=== PATIENT | female | born 1940 | race Hispanic/Latino ===

== ENCOUNTER → 2018-06-02 | Outpatient (CLI) | payer MEDICARE ==
--- NOTE | 2018-06-02 09:36 | Diagnostic Imaging Report ---
Exam: Bilateral knees 3 views History: Bilateral knee pain Comparison: None. Findings: Left: No acute, displaced fracture or dislocation. Advanced medial compartment predominant tricompartmental joint space narrowing with subchondral sclerosis and marginal osteophytosis. Small nonspecific suprapatellar joint effusion. Small, stippled calcifications project over the anterolateral soft tissues of the leg at the level of the proximal tibia, as well as adjacent to the posterior aspect of the distal femur on the lateral radiograph. Right: No acute, displaced fracture or dislocation. Advanced medial compartment predominant tricompartmental joint space narrowing, subchondral sclerosis and marginal osteophytosis. Small nonspecific suprapatellar joint effusion. Intra-articular osteochondral fragment projects over the lateral compartment on the frontal radiographs. 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 Suspected intra-articular osteochondral fragment in the right knee joint, and nonspecific soft tissue calcifications about the left knee joint.. These findings may be further evaluated by MRI if clinically warranted. Signed by: Dr. Willem Boss M.D. on 06/02/2018 9:32 AM
== END ==
LOC: RAD 08:34
PROVIDERS: ATTEND Emergency Medicine
DX: M25.562 Pain in left knee (principal); M25.561 Pain in right knee

== ENCOUNTER → 2019-02-03 | Outpatient (CLI) | payer OTHER ==
--- NOTE | 2019-02-03 14:44 | Diagnostic Imaging Report ---
EXAMINATION: MRI of the brain without contrast. HISTORY: Memory loss COMPARISON: None. TECHNIQUE: Sagittal T1 ultrathin slice with coronal and axial reformations; axial DWI, T2, FLAIR, T2 gradient echo. IMAGE QUALITY: Artifact from patient motion mildly limits evaluation of the sequences. FINDINGS: DEMENTIA: Structural lesion: No intra- or extra-axial mass or hematoma. Ventricles: No hydrocephalus. Trivedi matter signal intensity: Cortex: Unremarkable. Basal ganglia: Unremarkable. Thalami: Unremarkable. White matter signal intensity: Cerebral: Few scattered and moderate confluent periventricular white matter T2 and FLAIR hyperintense foci, most likely nonspecific chronic fibrotic vascular ischemic changes. Brainstem: Unremarkable. Mamillary bodies/fornices and hippocampi: No atrophy or abnormal signal. Microhemorrhages: None. Atrophy: Global: Symmetric. Focal: Slightly disproportionate bilateral parietal cortical and hippocampal volume loss, which I'm dictating patient with Alzheimer's disease, only the clinical setting. Otherwise no disproportionate lobar, mesencephalic, pontine, or cerebellar atrophy. Vessels: Expected flow voids present in the major arteries and dural sinuses. Sella: Unremarkable. OTHER: Subarachnoid spaces: No abnormal signal intensity. Foramen magnum: Unremarkable. Skull: Unremarkable. Paranasal / mastoid sinuses: No significant inflammatory disease. IMPRESSION: 1. Moderate chronic microvascular ischemic changes. 2. Slightly disproportionate bilateral parietal cortical and medial temporal volume loss as detailed above. Signed by: Dr. Tere Fletcher M.D. on 02/03/2019 2:40 PM
== END ==
LOC: MRI 09:35
PROVIDERS: ATTEND Emergency Medicine
DX: F03.90 Unspecified dementia, unspecified severity, without behavioral disturbance, psychotic disturbance, mood disturbance, and anxiety (principal)
CPT/HCPCS: 70551

== ENCOUNTER 2021-03-02 20:33 | Emergency (ER) | payer MEDICARE ==
[~2021-03-02] VITALS: Ht 162.6 cm; Wt 104.3 kg
[2021-03-02 21:00] LABS: BASOPHILS # (AUTO) 0.1 (0.0-0.1); BASOPHILS % 0.7 % (0.0-1.0); EOSINOPHILS % 0.4 % (0.0-6.0); HEMATOCRIT 41.3 % (34.2-44.1); HEMOGLOBIN 13.3 g/dL (12.0-16.0); LYMPHOCYTES # (AUTO) 1.8 (1.0-3.2); LYMPHOCYTES % 23.6 % (18.0-39.1); MEAN CORPUSCULAR HEMOGLOBIN 31.5 pg (28-32); MEAN CORPUSCULAR HGB CONC 32.2 g/dL (31-35); MEAN CORPUSCULAR VOLUME 97.9 fL (81-99); MONOCYTES # (AUTO) 1.1 (0.2-0.8); MONOCYTES % 14.8 % (4.4-11.3); NEUTROPHILS # (AUTO) 4.6 (2.1-6.9); NEUTROPHILS % 60.1 % (38.7-80.0); PLATELET COUNT 208 x10e3/uL (140-360); RED BLOOD COUNT 4.22 x10e6/uL (3.6-5.1); RED CELL DISTRIBUTION WIDTH 14.3 % (11.7-14.4)
[2021-03-02 21:17] LABS: ALBUMIN 3.7 g/dL (3.5-5.0); ALBUMIN/GLOBULIN RATIO 0.9 (0.8-2.0); ANION GAP 19.6 mmol/L (8-16); CALCIUM 9.8 mg/dL (8.4-10.2); CREATININE, SERUM 1.11 mg/dL (0.57-1.11); POTASSIUM 3.6 mmol/L (3.5-5.1)
[2021-03-02 21:23] LABS: CREATINE KINASE MB 4.1 ng/mL (0-5.0)
[2021-03-02 22:37] LABS: CLARITY,URINE CLEAR (CLEAR); COLOR,URINE YELLOW (YELLOW); KETONES,URINE NEGATIVE (NEGATIVE); LEUKOCYTE ESTERASE ,URINE NEGATIVE (NEGATIVE); NITRITE,URINE NEGATIVE (NEGATIVE); PROTEIN,URINE DIPSTICK 2+ (NEGATIVE); URINE UROBILINOGEN 0.2 mg/dL (0.2 - 1)
[2021-03-02 22:44] LABS: AMORPHOUS SEDIMENT,URINE FEW (FEW); BACTERIA,URINE FEW /HPF; EPITHELIAL CELLS,URINE FEW /LPF; WBC,URINE (MAN) 0-5 /HPF (0-5)
== END 2021-03-03 00:24 | disposition home or self-care (01) ==
LOC: ER 20:50
DX: U07.1 COVID-19 (principal); R50.9 Fever, unspecified; R53.1 Weakness; R94.31 Abnormal electrocardiogram [ECG] [EKG]; I10 Essential (primary) hypertension; I48.91 Unspecified atrial fibrillation; G40.909 Epilepsy, unspecified, not intractable, without status epilepticus; F31.9 Bipolar disorder, unspecified
CPT/HCPCS: 36415; 70450; 71045; 72100; 72170; 80053; 81001; 82550; 82553; 83880; 84484; 85025; 93005; 99284; U0002

== ENCOUNTER 2022-04-10 08:43 | Emergency (ER) | payer MEDICARE ==
[~2022-04-10] VITALS: Ht 162.6 cm; Wt 104.3 kg
[2022-04-10] MEDS ORDERED: SODIUM CHLORIDE 0.9% 1000ML 1,000 ML IV SCH (09:15)
[2022-04-10 09:27] LABS: BASOPHILS % 0.5 % (0.0-1.0); EOSINOPHILS % 0.4 % (0.0-6.0); HEMATOCRIT 43.9 % (34.2-44.1); HEMOGLOBIN 13.6 g/dL (12.0-16.0); LYMPHOCYTES # (AUTO) 1.4 (1.0-3.2); LYMPHOCYTES % 16.5 % (18.0-39.1); MEAN CORPUSCULAR HEMOGLOBIN 30.8 pg (28-32); MEAN CORPUSCULAR VOLUME 99.3 fL (81-99); MONOCYTES # (AUTO) 0.8 (0.2-0.8); MONOCYTES % 9.5 % (4.4-11.3); NEUTROPHILS # (AUTO) 6.1 (2.1-6.9); NEUTROPHILS % 72.5 % (38.7-80.0); PLATELET COUNT 217 x10e3/uL (140-360); RED BLOOD COUNT 4.42 x10e6/uL (3.6-5.1); RED CELL DISTRIBUTION WIDTH 13.4 % (11.7-14.4)
[2022-04-10 09:53] LABS: CLARITY,URINE CLOUDY (CLEAR); COLOR,URINE YELLOW (YELLOW); KETONES,URINE TRACE (NEGATIVE); LEUKOCYTE ESTERASE ,URINE 1+ (NEGATIVE); NITRITE,URINE POSITIVE (NEGATIVE); PROTEIN,URINE DIPSTICK >=300 (NEGATIVE); URINE UROBILINOGEN 0.2 mg/dL (0.2 - 1)
[2022-04-10 09:53] LABS: ALBUMIN/GLOBULIN RATIO 0.8 (0.8-2.0); CALCIUM 9.1 mg/dL (8.4-10.2); CREATININE, SERUM 0.99 mg/dL (0.57-1.11)
[2022-04-10 10:03] LABS: BACTERIA,URINE MANY /HPF; EPITHELIAL CELLS,URINE MODERATE /LPF; RBC,URINE 21-50 /HPF (0-5); RENAL EPITHELIAL CELLS,URINE MODERATE; TRANSITIONAL EPI CELLS,URINE FEW; WBC,URINE (MAN) >50 /HPF (0-5)
[2022-04-10] MEDS ORDERED: CEFDINIR300 MG PO (12:19)
[2022-04-10 13:25] VITALS: BP 151/93
== END 2022-04-10 13:27 | disposition home or self-care (01) ==
LOC: ER 08:47
DX: R50.9 Fever, unspecified (principal); N39.0 Urinary tract infection, site not specified; R30.0 Dysuria; R94.31 Abnormal electrocardiogram [ECG] [EKG]
CPT/HCPCS: 36415; 71045; 80053; 81001; 83605; 85025; 87040; 87071; 87086; 87186; 87205; 93005; 94760; 99284; J0696; J7030